=== PATIENT | male | born 1965 | race Two or more races ===

== ENCOUNTER 2018-05-02 08:12 | Emergency (ER) | payer MEDICAID ==
[~2018-05-02] VITALS: Ht 177.8 cm; Wt 87.0 kg
[2018-05-02 08:13] VITALS: BP 137/89
== END 2018-05-02 12:02 | disposition left against medical advice (07) ==
LOC: ER 08:12
DX: Z53.21 Procedure and treatment not carried out due to patient leaving prior to being seen by health care provider (principal)

== ENCOUNTER 2024-10-14 20:20 | Emergency (ER) | payer MEDICAID ==
[~2024-10-14] VITALS: Ht 170.2 cm; Wt 60.0 kg
[2024-10-14 20:38] VITALS: BP 141/91; PULSE 86; RESP 16; O2SAT 100
[2024-10-14] MEDS: PANTOPRAZOLE SODIUM 40 MG/VIAL IV ONE (22:40)
[2024-10-14] MEDS: ONDANSETRON HCL 4MG/2ML INJ IV ONE (22:41)
[2024-10-14] MEDS: SODIUM CHLORIDE 0.9% 1,000 ML IV ONE (22:41)
[2024-10-14 23:17] LABS: INR 1.0
[2024-10-14 23:24] LABS: CREATININE 0.7 mg/dL (0.6-1.3); UREA NITROGEN BLOOD < 5 mg/dL (9-23)
[2024-10-14 23:25] LABS: TROPONIN I HIGH SENSITIVITY 7 ng/L (3.0-53)
[2024-10-14 23:26] LABS: ASPARTATE AMINOTRANSFERASE 505 IU/L (<34); BILIRUBIN DIRECT 0.3 mg/dL (<=3.0); BILIRUBIN TOTAL 0.6 mg/dL (0.1-1.0); PROTEIN TOTAL 7.7 g/dL (6.0-8.3)
[2024-10-14 23:28] LABS: BASOPHILS % 1.3 % (0.0-2.0); EOSINOPHILS % 0.2 % (0.0-5.0); HEMATOCRIT. 41.2 % (42.0-52.0); HEMOGLOBIN. 13.8 g/dL (14.0-18.0); LYMPHOCYTES % 30.4 % (20.0-50.0); MEAN PLATELET VOLUME 9.0 fl (7.4-10.4); MONOCYTES % 6.8 % (2.0-8.0); NEUTROPHILS % 61.3 % (40.0-76.0); PLATELET 62 x1000/uL (130-400); RED BLOOD CELL COUNT 4.64 mill/uL (4.7-6.1); RED CELL DISTRIBUTION WIDTH 20.2 % (11.6-14.6)
== END 2024-10-15 02:30 | disposition left against medical advice (07) ==
LOC: ER 20:20 → EDBEDREQSVC 10-15 00:47 → EDBEDREQ 10-15 00:47 → EDBEDREQTM 10-15 00:47 → EDBEDREQDT 10-15 00:47 → ER 10-15 02:30 → CANBEDREQ 10-15 02:51
DX: F10.129 Alcohol abuse with intoxication, unspecified (principal); F20.9 Schizophrenia, unspecified; R10.9 Unspecified abdominal pain; Y90.9 Presence of alcohol in blood, level not specified
CPT/HCPCS: 80076; 80048; 80320; 83690; 85025; 85610; 85730; 84484; 36415; 96361; 96374; 96375; 99284; J2405; J2470; J7030; Z7610 ×2; G0480